=== PATIENT | female | born 1990 | race African-American/Black ===

== ENCOUNTER 2021-02-19 09:09 | Emergency (ER) | payer OTHER ==
[~2021-02-19] VITALS: Ht 170.2 cm; Wt 84.3 kg
[2021-02-19 09:10] VITALS: BP 141/78
[2021-02-19] MEDS ORDERED: NAPR-514 PO (10:56)
[2021-02-19] MEDS ORDERED: CYCL10TA2 PO (10:56)
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
== END 2021-02-19 11:01 | disposition home or self-care (01) ==
LOC: ER 09:09
DX: M54.5 Low back pain (principal); G89.11 Acute pain due to trauma; V49.49XA Driver injured in collision with other motor vehicles in traffic accident, initial encounter; Y93.89 Activity, other specified; Y92.488 Other paved roadways as the place of occurrence of the external cause; Y99.8 Other external cause status
CPT/HCPCS: 81025; 99283